=== PATIENT | female | born 1990 | race Asian ===

== ENCOUNTER 2021-04-10 05:52 | Emergency (ER) | payer BC ==
[~2021-04-10] VITALS: Ht 160 cm; Wt 59.0 kg
--- NOTE | 2021-04-10 06:17 | NUR ---
MAINE [id number] FROM HOME FOR C/O SUDDEN LOWER BACK PAIN SINCE 2129 LAST NIGHT. PLACED IN BED 9 ON MONITOR AND PULSE OX. AWAITING ER MD FOR EVAL AND ORDERS.
[2021-04-10] MEDS ORDERED: LORAZEPAM INJ 2 MG/ML VIAL ONE (06:28)
[2021-04-10] MEDS ORDERED: MORPHINE SULFATE INJ 2 MG/ML DISP.SYRIN ONE (06:28)
[2021-04-10] MEDS ORDERED: IV NS 0.9% 1,000 ML IV ONE (06:30)
[2021-04-10] MEDS ORDERED: LORAZEPAM INJ 2 MG/ML VIAL IV ONE (06:30)
[2021-04-10] MEDS ORDERED: MORPHINE SULFATE INJ 2 MG/ML DISP.SYRIN IV ONE (06:30)
--- NOTE | 2021-04-10 07:55 | NUR ---
URINE COLLECTED AND SENT TO THE LAB
--- NOTE | 2021-04-10 07:56 | NUR ---
LAB AT BEDSIDE
[2021-04-10 08:06] LABS: BASOPHILS # (AUTO) 0.1 K/uL (0.0-0.2); BASOPHILS % (AUTO) 0.5 % (0.0-2.0); EOSINOPHILS % (AUTO) 0.3 % (0.0-6.0); HEMATOCRIT 39 % (33-45); LYMPHOCYTES # (AUTO) 1.3 K/uL (0.8-4.8); LYMPHOCYTES % (AUTO) 11.9 % (20.0-44.0); MEAN CORPUSCULAR HGB CONC 33 g/dl (31.0-36.0); MEAN CORPUSCULAR VOLUME 86 fL (82-100); MONOCYTES # (AUTO) 0.7 K/uL (0.1-1.30); MONOCYTES % (AUTO) 6.5 % (2.0-12.0); NEUTROPHILS # (AUTO) 8.9 K/uL (1.8-8.9); NEUTROPHILS % (AUTO) 80.8 % (43.0-81.0); PLATELET COUNT (AUTO) 377 K/uL (150-450); RED BLOOD CELL COUNT(AUTO) 4.59 MIL/uL (4.0-5.2)
[2021-04-10 08:06] LABS: BILIRUBIN,URINE Negative (NEGATIVE); COLOR,URINE YELLOW (YELLOW); LEUKOCYTE ESTERASE ,URINE Trace (NEGATIVE); NITRITE, URINE Negative (NEGATIVE); PH,URINE 6.5 (5.0-8.0); PROTEIN,URINE Negative (NEGATIVE); UGLUCOSE Negative (NEGATIVE); UROBILINOGEN,URINE 0.2 EU/dL (0.2)
[2021-04-10 08:15] LABS: CALCIUM, SERUM 7.9 mg/dL (8.5-10.1); CREATININE 0.6 mg/dL (0.6-1.3); POTASSIUM 3.6 mmol/L (3.5-5.1)
[2021-04-10 08:24] LABS: BACTERIA,URINE Few /HPF (None Seen); SQUAMOUS EPITHELIAL CELL,UR Few /HPF (None Seen)
--- NOTE | 2021-04-10 08:40 | NUR ---
US TECH AT THE BEDSIDE
[2021-04-10] MEDS ORDERED: CYCL5TAB PO (10:31)
[2021-04-10] MEDS ORDERED: HYDR-4303 PO (10:31)
[2021-04-10] MEDS ORDERED: IBUP-1955 PO (10:31)
[2021-04-10] MEDS ORDERED: IBUPROFEN 600 MG TABLET ONE (11:06)
[2021-04-10] MEDS ORDERED: IBUPROFEN 600 MG TABLET PO ONE (11:30)
[2021-04-10] MEDS ORDERED: CYCLOBENZAPRINE 10 MG TABLET PO ONE (12:00)
[2021-04-10] MEDS ORDERED: CYCLOBENZAPRINE 10 MG TABLET ONE (12:04)
--- NOTE | 2021-04-10 12:17 | NUR ---
IV removed. Catheter intact and site benign. Pressure and 4x4 applied to site. No bleeding noted.Patient discharged to home in stable condition. Written and verbal after care instructions given. Patient verbalizes understanding of instruction.
[2021-04-10 12:18] VITALS: BP 123/67
== END 2021-04-10 12:19 | disposition home or self-care (01) ==
LOC: ER 05:55
DX: M54.50 Low back pain, unspecified (principal)
CPT/HCPCS: 36415; 74176; 76856; 80048; 81001; 84703; 85025; 96361; 96374; 96375; 99285; J2060; J2270; J7030